=== PATIENT | male | born 1975 | race Caucasian/White ===

== ENCOUNTER 2021-03-02 17:30 | Emergency (ER) | payer BC ==
[2021-03-02 17:36] VITALS: BP 135/96; PULSE 77; RESP 20; TEMP 98
[2021-03-02] MEDS ORDERED: LIDOCAINE 1% INJ 10MG/ML (20 ML MDV) SQ ONE (17:43)
[2021-03-02] MEDS ORDERED: ceFAZolin 1,000 MG VIAL (IM USE) IM STA (17:51)
--- NOTE | 2021-03-02 17:53 | ED ---
Fall HPI - General Chief Complaint: Fall Stated Complaint: Skateboard accident/finger injury Time Seen by Provider: 03/02/21 17:36 Source: patient, RN notes reviewed Mode of arrival: ambulatory - History of Present Illness Initial Comments: This a 45-year-old male presents emergency Department chief complaint of fall. Patient states he was skateboarding states he came down awkwardly injuring his left hand third digit in his right hip. Patient states that he had home and only has no major head injury no loss conscious or neck or back pain no abdominal pain. Patient states his just sore. He states his tetanus is up-to-date. Patient states his finger has laceration and is deformed. - Related Data Previous Rx's Medication Instructions Recorded Cephalexin [Keflex] 500 mg PO Q6HR #40 cap 03/02/21 Allergies Allergy/AdvReac Type Severity Reaction Status Date / Time No Known Allergies Allergy Verified 03/02/21 17:36 Review of Systems ROS Statement: Those systems with pertinent positive or pertinent negative responses have been documented in the HPI. ROS Other: All systems not noted in ROS Statement are negative. Past Medical History Past Medical History: No Reported History Past Surgical History: No Surgical Hx Reported Smoking Status: Never smoker Past Alcohol Use History: Occasional Past Drug Use History: None Reported General Exam Limitations: no limitations General appearance: alert, in no apparent distress Head exam: Present: atraumatic, normocephalic, normal inspection Respiratory exam: Present: normal lung sounds bilaterally. Absent: respiratory distress, wheezes, rales, rhonchi, stridor Cardiovascular Exam: Present: regular rate, normal rhythm, normal heart sounds. Absent: systolic murmur, diastolic murmur, rubs, gallop, clicks Extremities exam: Present: other (Left hand third digit there is a laceration approximately 2 cm on the palmar aspect of the third digit patient has obvious deformity of the distal phalanx right hip full range of motion mild tenderness deformity remaining extremity exam) Back exam: Present: full ROM ( limits). Absent: tenderness, paraspinal tenderness, vertebral tenderness Neurological exam: Present: alert, reflexes normal. Absent: motor sensory deficit Skin exam: Present: warm, dry, intact, normal color. Absent: rash Course Vital Signs 03/02/21 17:32 Temperature 98.0 F Pulse Rate 77 Respiratory 20 Rate Blood Pressure 135/96 O2 Sat by Pulse 97 Oximetry Procedures - Laceration Laceration #1 Consent Obtained: verbal consent Indication: laceration Site: hand Size (cm): 2 Description: irregular Depth: simple, single layer Anesthetic Used: lidocaine 1%, without epi Anesthesia Technique: local infiltration Amount (mls): 4 Pre-repair: wound explored, irrigated extensively, deep structures intact Type of Sutures: nylon Size of Sutures: 4-0 Number of Sutures: 4 Technique: simple, interrupted Patient Tolerated Procedure: well, no complications - Orthopedic Joint Reduction Joint #1 Consent Obtained: verbal consent Side: left Joint Reduction Location: finger Analgesia: digital block Local Anesthetic Used: Lidocaine 1%, with Epi Technique Used: traction/counter-traction Post-Reduction Neuro Exam: intact Post-Reduction Vascular Exam: intact Post Reduction X-Ray Obtained: Yes Post Reduction X-Ray Results: reduced Splint Applied: Yes Patient Tolerated Procedure: well Medical Decision Making - Medical Decision Making 45-year-old male present emergency from chief complaint of finger injury and have injury. Patient had a dislocated finger which was reduced laceration was closed. There is no foreign bodies. Patient tolerated well Disposition Clinical Impression: Fall, Laceration of finger of left hand, Dislocation, finger, Contusion of right hip Disposition: HOME SELF-CARE Condition: Stable Instructions (If sedation given, give patient instructions): Finger Dislocation (ED), Care For Your Stitches (ED), Laceration (ED) Additional Instructions: Please return to the Emergency Department if symptoms worsen or any other concerns. Prescriptions: Cephalexin [Keflex] 500 mg PO Q6HR #40 cap Is patient prescribed a controlled substance at d/c from ED?: No Referrals: Nonstaff,Physician [Primary Care Provider] - 1-2 days
--- NOTE | 2021-03-02 19:01 | XR ---
EXAMINATION TYPE: XR Hip RT and AP Pelvis DATE OF EXAM: 03/02/2021 COMPARISON: NONE HISTORY: Pain TECHNIQUE: 3 views FINDINGS: Pelvic ring is intact. Proximal femurs and hip joints are intact. Sacroiliac joints appear normal. IMPRESSION: Normal pelvis and right hip exam.
--- NOTE | 2021-03-02 19:02 | XR ---
EXAMINATION TYPE: XR finger LT DATE OF EXAM: 03/02/2021 COMPARISON: NONE HISTORY: TECHNIQUE: 3 views FINDINGS: There is posterior dislocation of the DIP joint of the middle finger left hand. I see no fr acture line. IMPRESSION: Posterior dislocation.
--- NOTE | 2021-03-02 19:12 | XR ---
EXAMINATION TYPE: XR finger LT DATE OF EXAM: 03/02/2021 COMPARISON: Today HISTORY: Post reduction TECHNIQUE: 3 views FINDINGS: There is anatomic reduction of the DIP joint of the middle finger left hand. I see no fract ure line. IMPRESSION: Anatomic reduction. No fracture seen.
== END 2021-03-02 18:44 | disposition home or self-care (01) ==
LOC: EC 17:30
DX: S61.213A Laceration without foreign body of left middle finger without damage to nail, initial encounter (principal); S63.253A Unspecified dislocation of left middle finger, initial encounter; S70.01XA Contusion of right hip, initial encounter; V00.131A Fall from skateboard, initial encounter; Y92.009 Unspecified place in unspecified non-institutional (private) residence as the place of occurrence of the external cause; Y93.51 Activity, roller skating (inline) and skateboarding
CPT/HCPCS: 73502; 73140; 12001; 99284; 26770; J2001